=== PATIENT | female | born 1965 | race Asian ===

== ENCOUNTER 2021-12-15 12:23 | Emergency (ER) | payer MEDICAID ==
[~2021-12-15] VITALS: Ht 152.4 cm; Wt 79.5 kg
[2021-12-15] MEDS ORDERED: METF-436 PO (15:08)
[2021-12-15] MEDS ORDERED: BACL-11 PO (15:08)
[2021-12-15] MEDS ORDERED: ATOR-2 PO (15:08)
[2021-12-15] MEDS ORDERED: ASPI81TA52 PO (15:08)
[2021-12-15 15:37] VITALS: BP 165/87
== END 2021-12-15 15:43 | disposition home or self-care (01) ==
LOC: ER 12:23
DX: Z76.0 Encounter for issue of repeat prescription (principal); E11.9 Type 2 diabetes mellitus without complications
CPT/HCPCS: 82948; 99283